=== PATIENT | male | born 1960 | race Caucasian/White ===

== ENCOUNTER 2020-11-20 11:12 | Emergency (ER) | payer MEDICARE ==
[~2020-11-20] VITALS: Ht 182.9 cm; Wt 181.4 kg
[~2020-11-20 11:12] MED LIST: ASPIRIN EC81 MG PO; ATENOLOL50 MG PO; AUGMENTIN 875-1 EACH PO; AVAPRO300 MG PO; DOXYCYCLINE HY100 MG PO; FISH OIL 1,0001 EAC6 PO; HYDROCHLOROTHIA25 MG PO; MULTIVITAMINS1 EAC7 PO; OXYCODON-ACETA1 EAC2 PO; VITAMIN C500 M2 PO
--- OUTSIDE RECORDS SUMMARY | 2020-11-20 11:22 | XMS ---
PreManage Notification: CHRISTIAN QUINN Security Educational Technologist Events No recent Security Events currently on file CRITERIA MET - History of Sepsis Dx CARE PROVIDERS There are no care providers on record at this time. [facility] has no Care Guidelines for this patient. [place] VISIT COUNT (12 MO.) 1 TRISTON Alicia TOTAL 1 NOTE: Visits indicate total known visits. ED/UCC VISIT TRACKING (12 MO.) 11/20/2020 11:19 [facility] [place] TYPE: Emergency COMPLAINT: - COLD/FLU SYMPTOMS INPATIENT VISIT TRACKING (12 MO.) No inpatient visits to display in this time frame [email or web address]
[2020-11-20] MEDS ORDERED: MELOXICAM15 MG PO (11:28)
[2020-11-20] MEDS ORDERED: IRBESARTAN300 MG PO (11:28)
[2020-11-20] MEDS ORDERED: ADVAIR 500-501 EACH INH (11:28)
[2020-11-20] MEDS ORDERED: VENTOLIN HFA18 GM INH (11:29)
[2020-11-20] MEDS ORDERED: PREDNISONE20 MG PO (13:06)
--- NOTE | 2020-11-20 15:04 | EKG ---
[facility] [address] [place], [place] [address] Signed Normal sinus rhythm Normal ECG When compared with ECG of 13-SEP-2016 09:31, Vent. rate has increased BY 32 BPM Confirmed by JEAN VO MD ([id number]) on 11/20/2020 3:03:50 PM Electronically Signed By: JEAN VO MD 11/20/20 1504 PATIENT NAME: CHRISTIAN QUINN Electrocardiogram DATE OF : 64 PHYSICIAN: JEAN VO MD REPORT #: [id number] REPORT IS CONFIDENTIAL AND NOT TO BE RELEASED WITHOUT AUTHORIZATION
== END 2020-11-20 13:29 | disposition home or self-care (01) ==
LOC: ED 11:12
DX: U07.1 COVID-19 (principal)
CPT/HCPCS: 71045; 93005; 93010; 99285-25; J1100

== ENCOUNTER 2025-07-17 07:28 | Day surgery (SDC) | payer MEDICARE, OTHER ==
[~2025-07-17] VITALS: Ht 182.9 cm; Wt 175.0 kg
[~2025-07-17 07:28] MED LIST changes: +ADVAIR 500-501 EACH INH; +CEFAZOLIN SODIUM 3 GM/30 ML SYR IV SCH; +IBLOOD GLUCOSE TEST STRIP 1 EA TEST VI PRN; +IRBESARTAN300 MG PO; +LACTATED RINGER'S 1,000 ML IV SCH; +LIDOCAINE HCL 1% 5 ML SDV INJ ONE; +MELOXICAM15 MG PO; +PREDNISONE20 MG PO; +VENTOLIN HFA18 GM INH
[2025-07-17 07:38] VITALS: BP 118/66
[2025-07-17] MEDS ORDERED: ZINC10 MG PO (07:41)
[2025-07-17] MEDS ORDERED: VITAMIN D31 ML MISC (07:41)
[2025-07-17] MEDS ORDERED: MAGNESIUM400 M1 PO (07:42)
[2025-07-17] MEDS ORDERED: fentaNYL citrate 100 MCG/2 ML VIAL ONE (08:24)
[2025-07-17] MEDS ORDERED: LIDOCAINE HCL 2% 5 ML SDV ONE (08:24)
--- NOTE | 2025-07-17 09:30 | NUR ---
07/17/25 0930 Ramses Schwartz 0921: PT ARRIVED TO PACU WITH ORAL AIRWAY IN PLACE ON 6L NC. PT NON AROUSABLE AT THIS TIME. PT ON LEFT LATERAL SIDE AND BELLY IS SOFT. 0924: ORAL AIRWAY OUT AT THIS TIME. AND TITRATED TO RA.
[2025-07-17 09:46] VITALS: BP 118/76
--- NOTE | 2025-07-19 14:10 | OR ---
[facility] [address] [place] [address] Signed DATE OF OPERATION: 07/17/2025 SURGEON: Willie Guajardo MD PREOPERATIVE DIAGNOSES: 1. Colon screening. 2. Known history of diverticulosis. POSTOPERATIVE DIAGNOSES: 1. Diverticulosis of sigmoid and left colon. 2. Small polyp of cecum. 3. Minimal proctitis. PROCEDURE: Total colonoscopy to cecum with cold morcellation polypectomy x1. ANESTHESIA: Intravenous sedation, propofol; Yordy Bell CRNA. INDICATION: This morbidly obese, 285 pounds, white man is a patient of Dr. Shepard. He last underwent colonoscopy in 2014, which showed diverticulosis. He has lost only 15 pounds in the past 10 years, previously 400 pounds, now 385 pounds. He clearly is noted to have an incisional hernia related to a midline incision from the past, but no pain with the hernia. He is admitted at this time to undergo a screening colonoscopy, understanding the risk of bleeding, infection, and perforation. FINDINGS: The prep was adequate. Complete colonoscopy was undertaken of the cecum. There was a small polyp of the cecum. Diverticula were noted in the sigmoid and scattered throughout the colon otherwise. There were no other findings of concern except mild inflammation of the rectum, probably related to the prep. DESCRIPTION OF PROCEDURE: The patient was brought to the endoscopy suite and placed in lateral decubitus position, given intravenous sedation with propofol infusional technique based on his ASA classification of 3. Digital rectal examination was normal. An Olympus video colonoscope was passed in the rectum and manipulated throughout the colon noting diverticulosis of the sigmoid. The scope was advanced further showing Electronically Signed By: WILLIE GUAJARDO MD 07/19/25 1410 PATIENT NAME: CHRISTIAN QUINN OPERATIVE REPORT DATE OF : 64 REPORT #: [id number] PHYSICIAN: WILLIE GUAJARDO MD PCP: ENEDELIA SHEPARD MD REPORT IS CONFIDENTIAL AND NOT TO BE RELEASED WITHOUT AUTHORIZATION [facility] [address] [place], [place] [address] Signed scattered diverticula elsewhere. Ultimately, the cecum was fully intubated showing a normal appendiceal orifice and ileocecal valve. The small polyp of the cecum was excised with cold morcellation technique. The scope was withdrawn. Examination showed no sign of other abnormality. Retroflexed view of the rectum was normal. The scope was removed and the patient was taken to the recovery room in good condition. CONCLUDING DIAGNOSES: 1. Diverticulosis. 2. Very small polyp of cecum (excised). 3. Minimal proctitis, probably bowel prep related and biopsy. PLAN: Recommend repeat colonoscopy in 10 years. Recommend high-fiber diet based on diverticular disease. Consideration for incisional hernia would not be undertaken until substantial weight loss is undertaken. He will return to the ongoing care of Dr. Shepard. MD TAWANA Jones/ROBERTO /[id number] cc: Dr. Shepard Copies: ~ Electronically Signed By: WILLIE GUAJARDO MD 07/19/25 1410 PATIENT NAME: CHRISTIAN QUINN OPERATIVE REPORT DATE OF : 64 REPORT #: [id number] PHYSICIAN: WILLIE GUAJARDO MD PCP: ENEDELIA SHEPARD MD REPORT IS CONFIDENTIAL AND NOT TO BE RELEASED WITHOUT AUTHORIZATION
--- NOTE | 2025-07-22 16:45 | PATH ---
[facility] [place] [facility] [address] [place], [place] [address] Signed SPECIMEN(S): A CECUM POLYP SPECIMEN(S): B RECTUM BIOPSY SPECIMEN SOURCE: A. CECUM POLYP B. RECTUM BIOPSY CLINICAL HISTORY: Diverticulosis, polyp X1, mild proctitis FINAL PATHOLOGIC DIAGNOSIS: A. Colon, cecum polyp, biopsy: - Tubular adenoma. - Negative for high-grade dysplasia and malignancy. B. Colon, rectum, biopsy: - Colonic mucosa with normal glandular architecture. - Negative for acute, chronic, and granulomatous inflammation. - Subepithelial collagen layer is normal in thickness. - Negative for dysplasia and malignancy. - Multiple levels are examined with no proctitis identified. SDL MICROSCOPIC EXAMINATION: Histologic sections of all submitted blocks are examined by light microscopy. These findings, together with the gross examination, support the pathologic diagnosis. GROSS DESCRIPTION: A. The specimen, labeled and designated "[place], cecum polyp," is received in formalin and consists of one smith soft tissue fragment, 0.2 cm. Entirely submitted in (A1). B. The specimen, labeled and designated "[place], rectum biopsy," is received in formalin and consists of one smith soft tissue fragment, 0.3 cm. Entirely submitted in (B1). VB (under the direct supervision of a pathologist) The Gross Description was prepared using a voice recognition system. The report was reviewed for accuracy; however, sound-alike word errors, addition and/or deletions may occur. If there are any questions about this report, please contact Client Services. ADDITIONAL NOTES: PATIENT NAME: CHRISTIAN QUINN PATHOLOGY DATE OF : 64 REPORT #: [id number] PHYSICIAN: CASANDRA CHOW PCP: ENEDELIA DEGROOT MD REPORT IS CONFIDENTIAL AND NOT TO BE RELEASED WITHOUT AUTHORIZATION [facility] [address] [place] [id number] Signed Immunohistochemical and/or in situ hybridization studies if performed in this case included appropriate positive controls that reacted as expected. This test was developed and its performance characteristics determined by [facility]. It has not been cleared or approved by the U.S. Food and Drug Administration. The FDA has determined that such clearance or approval is not necessary. This test is used for clinical purposes. It should not be regarded as investigational or for research. [facility] is certified under the Clinical Laboratory Improvement Amendments of 1988 (CLIA) as qualified to perform high complexity clinical laboratory testing. PERFORMING LABORATORY: Technical component was performed by [facility], [address] [place] [id number] (CLIA# [id number]). Professional interpretation was performed by [facility], [address] [place] [id number] (CLIA#: [id number]). Diagnostician: Aydee Adam MD Pathologist Electronically Signed 07/22/2025 Copies: ~ PATIENT NAME: CHRISTIAN QUINN PATHOLOGY DATE OF : 64 REPORT #: [id number] PHYSICIAN: CASANDRA CHOW PCP: ENEDELIA DEGROOT MD REPORT IS CONFIDENTIAL AND NOT TO BE RELEASED WITHOUT AUTHORIZATION
== END 2025-07-17 09:52 | disposition home or self-care (01) ==
LOC: OPS 07:28 → DS 07:28 → OPS 08:30 → DS 12:00
PROVIDERS: ATTEND Surgery
PROC: 0DBH8ZZ Excision of Cecum, Via Natural or Artificial Opening Endoscopic (ICD-10-PCS; principal; 2025-07-17 08:30)
DX: Z12.11 Encounter for screening for malignant neoplasm of colon (principal); D12.0 Benign neoplasm of cecum; K57.30 Diverticulosis of large intestine without perforation or abscess without bleeding; K62.89 Other specified diseases of anus and rectum; K43.2 Incisional hernia without obstruction or gangrene; I10 Essential (primary) hypertension; G47.30 Sleep apnea, unspecified; E66.01 Morbid (severe) obesity due to excess calories; Z68.43 Body mass index [BMI] 50.0-59.9, adult; Z79.899 Other long term (current) drug therapy; Z88.2 Allergy status to sulfonamides
CPT/HCPCS: 00811; 88305; J0690; J2003; J2405; J2704; J3010; J7121